=== PATIENT | female | born 1950 | race Two or more races ===

== ENCOUNTER 2018-01-24 21:28 | Emergency (ER) | payer OTHER ==
[~2018-01-24] VITALS: Ht 162.6 cm; Wt 68.9 kg
[2018-01-24 22:27] LABS: Basophils # (auto) 0 uL; Basophils % (auto) 0.2 % (0.0-2.0); Eosinophils # (auto) 0 uL; Eosinophils % (auto) 0.1 % (0.0-7.0); Hematocrit 38.5 % (36.0-46.0); Hemoglobin 12.5 g/dL (12.2-16.2); Lymphocytes # (auto) 0.9 uL; Lymphocytes % (auto) 5.3 % (10.0-50.0); Mean Corpuscular Hemoglobin 28.2 pg (28.0-32.0); Mean Corpuscular Hgb Conc. 32.5 g/dL (32.0-36.0); Mean Corpuscular Volume 86.7 fL (80.0-100.0); Monocytes # (auto) 1.2 uL; Monocytes % (auto) 7.3 % (0.0-12.0); Neutrophils # (auto) 14.6 uL; Neutrophils % (auto) 87.1 % (37.0-80.0); Platelet Count (auto) 263 10^3/uL (140-450); Red Blood Cells 4.44 10^6/uL (4.0-5.20); Red Cell Distribution Width 14.5 % (11.8-14.3); White Blood Cell 16.8 10^3/uL (4.4-10.8)
[2018-01-24 22:37] LABS: Alanine Aminotransferase 16 U/L (13-56); Albumin 3.4 g/dL (3.4-5.0); Anion Gap 8 (5-15); Aspartate Aminotransferase 13 U/L (15-37); BUN/Creatinine Ratio 19.8; Blood Urea Nitrogen 17 mg/dL (7-18); Calcium 8.8 mg/dL (8.5-10.1); Carbon Dioxide 25 mmol/L (21-32); Chloride 103 mmol/L (98-107); GFR African American 84 mL/min; GFR Non-African American 70 mL/min; Glucose 105 mg/dL (74-106); Lipase 94 U/L (73-393); Magnesium 1.9 mg/dL (1.6-2.6); Potassium 3.4 mmol/L (3.5-5.1); Sodium 136 mmol/L (136-145)
[2018-01-24 22:42] LABS: Alkaline Phosphatase 79 U/L (45-117); Bilirubin, Total 1.7 mg/dL (0.2-1.0)
[2018-01-25] MEDS ORDERED: PANTOPRAZOLE 40 MG/10 ML VIAL IV STA (06:42)
[2018-01-25] MEDS ORDERED: SODIUM CHLORIDE 0.9% 500 ML IVB ONE (06:42)
[2018-01-25] MEDS ORDERED: ONDANSETRON HCL 4 MG/2 ML VIAL IV ONE (06:45)
[2018-01-25] MEDS ORDERED: MORPHINE SULFATE 4 MG/ML SYR/VIAL IV ONE (06:45)
[2018-01-25] MEDS ORDERED: metroNIDAZOLE 500MG/100ML 100 ML IV ONE (06:45)
[2018-01-25 09:00] VITALS: BP 113/74
== END 2018-01-25 07:17 ==
LOC: ER 21:28
DX: K81.0 Acute cholecystitis (principal); D72.829 Elevated white blood cell count, unspecified; E78.00 Pure hypercholesterolemia, unspecified; Z90.89 Acquired absence of other organs
CPT/HCPCS: 36415; 74176; 80053; 83690; 83735; 84484; 85025; 93005; 94761; 96365; 96375; 99285; C9113; J2270; J2405; J3490; J7040